=== PATIENT | female | born 1950 | race Caucasian/White ===

== ENCOUNTER 2016-12-09 09:33 | Inpatient (IN) | payer OTHER, MEDICARE ==
[~2016-12-09 09:33] MED LIST: ASPIRIN EC81 MG PO; FISH OIL PO; NORCO 5/325 TAB1 TAB PO; PRILOSEC OTC20 M1 PO; SYNTHROID50 MC1 PO
[2016-12-10 06:01] LABS: ALB/GLOB RATIO 0.9 (0.8-2.0); ALBUMIN 3.4 g/dl (3.5-5.0); ALKALINE PHOSPHATASE 89 U/L (33-138); ALT/SGPT 28 U/L (12-78); ANION GAP 15 mmol/L (0-20); AST/SGOT 31 U/L (10-40); BILIRUBIN,TOTAL 1.1 mg/dl (0-1.5); BLOOD UREA NITROGEN 17 mg/dl (6-24); CALCIUM 8.6 mg/dl (8.5-10.5); CARBON DIOXIDE-VENOUS 23 mmol/L (22-32); CHLORIDE 104 mmol/l (96-110); CREATININE 1.12 mg/dl (0.50-1.10); GLUCOSE 151 mg/dL (70-110); POTASSIUM 4.6 mmol/L (3.7-5.1); SODIUM 137 mmol/L (135-145); eGFR VALUE FOR BLACK 59 mL/Min
[2016-12-10] MEDS ORDERED: PROTONIX40 M2 PO (14:05)
[2016-12-10] MEDS ORDERED: OXYCODONE H5 MG/5 M2 PO (14:07)
[2016-12-10] MEDS ORDERED: ZOFRAN ODT4 MG PO (14:08)
[2016-12-12 05:01] LABS: PLATELET COUNT 102 tho/cmm (150-450)
[2016-12-14 05:05] LABS: HGB-HEMOGLOBIN 9.5 gm/dl (12.0-15.5); PLATELET COUNT 119 tho/cmm (150-450)
== END 2016-12-10 15:15 | DRG 328 ==
LOC: SHSB 09:33 → ORW 12:31 → BURN 15:28
PROVIDERS: ADMIT Surgery
PROC: 0BQR4ZZ (ICD-10-PCS; principal; 2016-12-09)
PROC: 0DQ64ZZ Repair Stomach, Percutaneous Endoscopic Approach (ICD-10-PCS; principal; 2016-12-09)
PROC: 0DV44ZZ Restriction of Esophagogastric Junction, Percutaneous Endoscopic Approach (ICD-10-PCS; principal; 2016-12-09)
PROC: 0BQS4ZZ (ICD-10-PCS; principal; 2016-12-09)
DX: K44.0 Diaphragmatic hernia with obstruction, without gangrene (principal); E03.9 Hypothyroidism, unspecified; K21.9 Gastro-esophageal reflux disease without esophagitis; Z88.4 Allergy status to anesthetic agent; Z88.2 Allergy status to sulfonamides; Z79.899 Other long term (current) drug therapy
CPT/HCPCS: C1751; C9113; J0690; J1650; J1885; J2765; J7030